=== PATIENT | female | born 1980 | race Asian ===

== ENCOUNTER 2021-09-20 08:16 | Observation (INO) ==
[2021-09-20] MEDS ORDERED: SODIUM CHLORIDE 0.9% 500 ML IV ONE (08:23)
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
[2021-09-20 08:40] LABS: Basophils # (auto) 0.04 K/uL (0-0.2); Basophils % (auto) 0.7 %; Eosinophils # (auto) 0.22 K/uL (0-0.5); Eosinophils % (auto) 4.1 %; Hematocrit (blood only) 39.1 % (37-47); Hemoglobin 12.8 g/dL (12.0-16.0); Immature Granulocytes # (auto) 0.01 K/uL (0.00-0.02); Immature Granulocytes % (auto) 0.2 %; Lymphocytes # (auto) 2.28 K/uL (1.2-3.4); Lymphocytes % (auto) 42.6 %; Mean Corpuscular Hgb Conc 32.7 g/dL (32-36); Mean Corpuscular Volume 88.5 fL (80-100); Mean Platelet Volume 10.2 fL (7.4-10.4); Monocytes # (auto) 0.33 K/uL (0.11-0.59); Monocytes % (auto) 6.2 %; Neutrophils # (auto) 2.47 K/uL (1.4-6.5); Neutrophils % (auto) 46.2 %; Platelet Count 240 K/uL (130-400); RDW Coefficient of Variation 13.1 % (11.5-14.5); RDW Standard Deviation 42.8 fL (36.4-46.3); Red Blood Count 4.42 M/uL (4.2-5.4); White Blood Count 5.35 K/uL (4.8-10.8)
[2021-09-20] MEDS ORDERED: OPTIRAY 320 125ml IV ONE (08:40)
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
[2021-09-20 09:01] LABS: Troponin I < 0.03 ng/ml (0-0.04)
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
[2021-09-20 09:06] LABS: Alanine Aminotransferase 10 U/L (7-52); Albumin Globulin Ratio 1.7 (0.9-2); Albumin Level 4.2 gm/dl (3.4-5.0); Alkaline Phosphatase 44 U/L (34-104); Anion Gap 7 (3-11); Aspartate Aminotransferase 13 U/L (13-39); BUN Creatinine Ratio 22.1 (10-20); Bilirubin,Total 0.3 mg/dl (0.2-1.0); Blood Urea Nitrogen 17 mg/dl (6-23); Calcium 8.9 mg/dl (8.5-10.1); Carbon Dioxide 25 mmol/L (21-32); Chloride 108 mmol/L (98-107); Est GFR (African American) 111.2 ml/min; Est GFR (Non-African American) 95.9 ml/min; Globulin 2.5 gm/dl (2.5-4.0); Glucose 108 mg/dl (70-99(Fasting)); Lipase 24 U/L (11-82); Sodium 140 mmol/L (136-145); Total Protein 6.7 gm/dl (6.0-8.3)
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
[2021-09-20 09:14] LABS: Partial Thromboplastin Ratio 0.9; Partial Thromboplastin Time 23.8 Seconds (21.0-31.0); Prothrombin Time 9.8 Seconds (9.0-12.0)
[2021-09-20 09:18] LABS: Pregnancy Test, Serum Negative (Negative)
[2021-09-20] MEDS ORDERED: LIDO/EPINEPHRINE/SOD BICARB 20 ML VIAL INFIL ONE (09:27)
--- NOTE | 2021-09-20 09:29 | Emergency Department Note ---
ED Visit Note I was requested by Dr. Rice to evaluate this patient for primary wound closure of a laceration to the left knee. There is a 4.5 cm long laceration on the anterior aspect of the left knee. The edges are jagged and gape apart with traction. There is no foreign material in the wound and it looks clean. There is moderate active bleeding. No deep s tructures such as tendons, bones, or significant blood vessels are seen in the base of the wound. The wound does not extend into the joint space. Normal strength and movement of the left knee. Capillary refill less than 2 seconds. Normal sensation to light and sharp touch. PROCEDURE NOTE: Left Knee Laceration Repair Verbal consent was obtained from the patient to perform the procedure. Using s terile technique the wound was cleansed with Betadine. The area was sterilely draped. 6 ml of 1% buffered lidocaine with epinephrine was used to anesthetize the laceration on the left knee. Once the patient was anesthetized, the wound was copiously irrigated under pressure with sterile saline. The wound was explored and was as described above. The wound edges were debrided with surgical scissors for smoother edges and better alignment. The laceration was repaired using 6 todd with the wound edges being well approximated. The patient tolerated the procedure well. Hemostasis was achieved. The area was cleaned with sterile saline and dressed with bacitracin ointment and a sterile bandage. The chart was completed utilizing [employer] Speech voice recognition software. Grammatical errors, random word insertions, pronoun errors, and incomplete sentences are an occasional consequence of this system due to software limitations, ambient noise, and hardware issues. Any formal questions or concerns about the content, text, or information contained within the body of this dictation should be directly addressed to the nurse practitioner for clarification.
[2021-09-20] MEDS ORDERED: DIPHTHERIA/TETANUS/PERTUSSIS 0.5 ML SYR/VIAL IM ONE (10:28)
[2021-09-20] MEDS ORDERED: MoRPHine SULFATE 4 MG/ML 1 ML CARP\\VIAL IV STA (10:43)
[2021-09-20] MEDS ORDERED: ONDANSETRON INJ 2 MG/ML 2 ML VIAL IV STA ×2 (10:43→14:39)
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
[2021-09-20] MEDS ORDERED: AMOXICILLIN/CLAVULANATE 875MG HOME PACK PO ONE (13:44)
[2021-09-20] MEDS ORDERED: KETOROLAC TROMETHAMINE 15 MG/ML VIAL IV ONE (14:21)
[2021-09-20] MEDS ORDERED: ONDANSETRON INJ 2 MG/ML 2 ML VIAL ONE (14:27)
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
[2021-09-20] MEDS ORDERED: ONDANSETRON INJ 2 MG/ML 2 ML VIAL IV PRN (17:26)
--- NOTE | 2021-09-20 19:59 | Ultrasound Report ---
US thyroid CLINICAL HISTORY: 41 years-old Female with nodule. Follow up study in a patient with a subcentimeter right-sided thyroid nodule COMPARISON: CTA head and neck of same day TECHNIQUE: Multiple real time sonographic images of the thyroid were obtained accessing deras scale ap pearance and color doppler flow. FINDINGS: MEASUREMENTS: Right lobe: 1.3 x 3.7 x 1.3 cm Left lobe: 1.1 x 3.8 x 1.2 cm Isthmus: 0.3 cm PARENCHYMA: The thyroid parenchymal echotexture is homogeneous. NODULES: 6 x 3 x 4 mm hypoechoic nodule with central colloid within the mid right thyroid lobe. 1.4 x 0.6 x 1.0 cm isoechoic ovoid circumscribed nodule with central color flow is present along the poste rior margin of the right thyroid lobe correlating with the nodule seen on prior. IMPRESSION: 1.4 cm isoechoic nodule along the posterior margin of the right thyroid lobe correlates w ith the lesion seen on the CTA head and neck study of same day. An exophytic thyroid nodule versus pa rathyroid adenoma are the differential considerations. ACT 112: Negative or not required by law. The above report was generated using voice recognition software. It may contain grammatical, syntax o r spelling errors. Electronically signed by: Valeriy Barba M.D. 09/20/2021 7:58 PM
[2021-09-20] MEDS: KETOROLAC TROMETHAMINE 15 MG/ML VIAL IV PRN (20:09)
[2021-09-20] MEDS: ACETAMINOPHEN 325 MG TAB PO PRN ×2 (20:12→23:57)
--- NOTE | 2021-09-20 22:48 | Electrocardiogram Report ---
Test Reason : Blood Pressure : / mmHG Vent. Rate : 068 BPM Atrial Rate : 068 BPM P-R Int : 122 ms QRS Dur : 076 ms QT Int : 388 ms P-R-T Axes : 004 038 037 degrees QTc Int : 412 ms Poor data quality, interpretation may be adversely affected Normal sinus rhythm Normal ECG No previous ECGs available Confirmed by Ovidio Gary ([id number]) on 09/20/2021 10:48:18 PM Referred By: SELF Confirmed By:Ovidio Gary
[2021-09-21] MEDS: KETOROLAC TROMETHAMINE 15 MG/ML VIAL IV PRN (02:08)
[2021-09-21] MEDS: ACETAMINOPHEN 325 MG TAB PO PRN ×2 (07:39→16:32)
[2021-09-21 09:10] LABS: Thyroid Stimulating Hormone 1.128 uIu/ml (0.300-4.500)
[2021-09-21 09:12] LABS: T4 Free Thyroxine 0.6 ng/dl (0.61-1.60)
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
[2021-09-21] MEDS ORDERED: DIPHTHERIA/TETANUS/PERTUSSIS 0.5 ML SYR/VIAL IM ONE (14:27)
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
[2021-09-22 16:01] LABS: Microsomal Ab 3 IU/mL (<9); T3 Total 67 ng/dL (76-181); Thyroglobulin Antibodies <1 IU/mL (< or = 1)
== END 2021-09-21 18:10 | disposition home or self-care (01) ==
LOC: EDBD → ED 08:16 → EDINP 08:16 → SUATTDRO 14:52 → 3N 17:23